=== PATIENT | male | born 1965 | race Caucasian/White ===

== ENCOUNTER 2018-12-18 14:28 | Observation (INO) ==
[2018-12-18] MEDS ORDERED: MORPHINE IV ONE (15:03)
[2018-12-18] MEDS ORDERED: ZOFRAN IV ONE ×2 (15:03→16:47)
[2018-12-18] MEDS ORDERED: ASPIRIN PO ONE (15:28)
[2018-12-18 15:33] LABS: BASO# 0.03 X1000 (0.0-0.2); BASO% 0.3 % (0.0-0.8); EOS# 0.18 X1000 (0.0-0.7); EOS% 1.7 % (0.0-10.0); HEMATOCRIT 48.2 % (42.0-52.0); HEMOGLOBIN 16.3 g/dL (14.0-18.0); IMM GRAN# 0.03 X1000 (0.0-0.04); IMM GRAN% 0.3 % (0.0-0.5); LYMPH# 1.68 X1000 (1.2-3.4); LYMPH% 15.5 % (20.5-51.1); MCHC 33.8 g/dL (33-37); MCV 88.6 FL (81-99); MONO# 0.71 X1000 (0.11-0.59); MONO% 6.5 % (1.7-9.3); MPV 8.9 FL (7.4-10.4); NEUT# 8.21 X1000 (1.4-6.5); NEUT% 75.7 % (42.2-75.2); PLT 305 X1000 (130-400); RBC 5.44 XMIL (4.7-6.1); RDW 12.4 % (11.5-14.5); WBC 10.84 X1000 (4.8-10.8)
[2018-12-18] MEDS ORDERED: NITROGLYCERIN TOP ONE (15:52)
[2018-12-18 16:19] LABS: AGAP 18; ALB/GLOB RATIO 1.6; ALBUMIN 4.6 g/dL (3.5-5.0); ALKALINE PHOSPHATASE 93 U/L (32-122); AMYLASE 40 U/L (20-200); BUN 16 mg/dL (8-22); CALCIUM 9.4 mg/dL (8.8-10.2); CHLORIDE 105 mmol/L (98-107); CK PROFILE 188 U/L (24-204); COSMO 280; CREATININE 0.8 mg/dL (0.7-1.2); ESTIMATED GFR > 60; GLUCOSE 113 mg/dL (70-104); GOT 29 U/L (10-34); GPT 39 U/L (10-44); LIPASE 28 U/L (13-60); POTASSIUM 4.1 mmol/L (3.5-5.1); SODIUM 139 mmol/L (136-145); TCO2 16 mmol/L (25-35); TOTAL BILIRUBIN 1.04 mg/dL (0.20-1.00); TOTAL PROTEIN 7.4 g/dL (6.3-8.3)
--- NOTE | 2018-12-18 16:59 | EKG Report ---
Test Performed on : 12/18/2018 2:30:07 PM Test Reason : ED. No order in [place] Blood Pressure : / mmHG Vent. Rate : 077 BPM Atrial Rate : 077 BPM P-R Int : 146 ms QRS Dur : 086 ms QT Int : 376 ms P-R-T Axes : 031 -14 049 degrees QTc Int : 425 ms Normal sinus rhythm. Normal ECG No previous ECGs available Unconfirmed Result
--- NOTE | 2018-12-18 17:16 | PROVIDER DOCUMENTATION ---
This chart was entered by Gwendolyn Bland Scribe, acting as scribe for Estefania Osorio MD. HPI-Chest Pain - General Chief Complaint: Chest Pain Stated Complaint: CP Time Seen by Provider: 12/18/18 14:55 Allergies/Adverse Reactions: Patient Allergies Allergy/AdvReac Type Severity Reaction Status Date / Time No Known Allergies Allergy Verified 12/18/18 15:15 Home Medications: Home Medication List Medication Instructions Recorded Confirmed Last Taken Type ROSUVAstatin [Crestor] 10 mg PO QHS 12/18/18 12/18/18 1 Day Ago History ~12/17/18 - History of Present Illness-CP Nature of Presenting Problem: Pt is a 53 yom who presents to the ER w/ chest pain. Pt staets the pain started at 9:30am. Pt is nauseous and short of breath. Pt states he feels pressure on his chest. Location: reports: central Quality of Pain: reports: pressure Severity in ED: moderate Onset/Duration: this morning Timing: still present, getting worse Context/Activities at Onset: reports: none Associated Symptoms: reports: denies symptoms, diaphoresis, nausea, shortness of breath. denies: abdominal pain, fatigue, fever/chills Similar Symptoms Previously?: No Recently Seen Here or By Another Healthcare Provider: No Review of Systems - Adult - REVIEW OF SYSTEMS - ADULT Constitutional: reports: no symptoms reported Eyes: reports: no symptoms reported Ears, Nose, Mouth & Throat: reports: no symptoms reported Cardiovascular: reports: see HPI, chest pain. denies: irregular heart rate, palpitations Respiratory: reports: see HPI, shortness of breath. denies: cough, wheezing Gastrointestinal: reports: see HPI, nausea. denies: abdominal pain, vomiting Genitourinary: reports: no symptoms reported Musculoskeletal: reports: no symptoms reported Integumentary: reports: no symptoms reported Neurological: reports: no symptoms reported Psychiatric: reports: no symptoms reported Endocrine: reports: no symptoms reported Hematologic/Lymphatic: reports: no symptoms reported Allergic/Immunologic: reports: no symptoms reported All Other Systems: Reviewed and Negative Past History - Adult - PAST MEDICAL HISTORY-ADULT Review of Records: reports: Old Records Reviewed, Social history reviewed & non- contributory. Major Childhood Illnesses: reports: denies history Cardiovascular: reports: denies history Respiratory: reports: denies history Gastrointestinal: reports: denies history Obstetrical/Gynecological: reports: denies history Genitourinary: reports: denies history Musculoskeletal: reports: denies history Neurological: reports: denies history Endocrine/Immune: reports: denies history Other Conditions: reports: denies history - IMMUNIZATION STATUS Childhood Immunizations: See Nurse Assessment Flu Vaccine: See Nurse Assessment - FAMILY HISTORY Family History: reviewed, not pertinent - SOCIAL HISTORY Smoking: denies Substance Use: denies Physical Exam-General - CONSTITUTIONAL General Appearance: alert, mild distress, anxious - HEAD, EARS, NOSE, MOUTH & THROAT HENMT: normocephalic/atraumatic, moist mucous membranes. negative: angioedema - RESPIRATORY Respiratory: lungs clear, normal breath sounds. negative: crackles, wheezing - CARDIOVASCULAR Cardiovascular: normal peripheral pulses, regular rate, rhythm. negative: bradycardia, tachycardia - GASTROINTESTINAL (ABDOMEN) Abdominal Exam: normal bowel sounds, non tender, soft. negative: guarding, rebound - SKIN Integumentary: normal color, normal turgor, diaphoresis. negative: pallor - NEUROLOGIC Neurologic: grossly normal. negative: aphasia, facial droop - PSYCHIATRIC Psych/Mental Status: anxious. negative: normal mood/affect - HEART Score HEART Score: History: Moderately Suspicious HEART Score: ECG: Normal HEART Score: Age: 45-65 Years HEART Score: Risk Factors for Atherosclerotic Disease: 1 or 2 Risk Factors HEART Score: Troponin: < or = Normal Limit Total HEART Score:: 3 Progress - PLAN OF CARE/RESULTS Progress/Plan/Lab Results: Vital Signs - 8 hr 12/18/18 14:30 12/18/18 15:21 12/18/18 15:58 Temperature 97.9 F Pulse Rate 85 67 64 Respiratory Rate 18 18 16 Blood Pressure 148/97 113/95 142/96 O2 Sat by Pulse Oximetry 97 95 94 L 12/18/18 18:04 Temperature Pulse Rate 96 H Respiratory Rate 18 Blood Pressure 131/80 O2 Sat by Pulse Oximetry 99 Laboratory Results - last 24 hr 12/18/18 12/18/18 12/18/18 15:20 15:20 15:20 WBC 10.84 H RBC 5.44 Hgb 16.3 Hct 48.2 MCV 88.6 MCH 30.0 MCHC 33.8 RDW Std Deviation 12.4 Plt Count 305 MPV 8.9 Immature Gran % (Auto) 0.3 Neut % (Auto) 75.7 H Lymph % (Auto) 15.5 L [place] % (Auto) 6.5 Eos % (Auto) 1.7 Baso % (Auto) 0.3 Immature Gran # (Auto) 0.03 Neut # (Auto) 8.21 H Lymph # (Auto) 1.68 [place] # (Auto) 0.71 H Eos # (Auto) 0.18 Baso # (Auto) 0.03 Sodium 139 Potassium 4.1 Chloride 105 Carbon Dioxide 16 L Anion Gap 18 BUN 16 Creatinine 0.8 Estimated GFR/1.73 m2 > 60 BUN/Creatinine Ratio 20 Glucose 113 H Calculated Osmolality 280 Calcium 9.4 Total Bilirubin 1.04 H AST 29 ALT 39 Alkaline Phosphatase 93 Creatine Kinase 188 Troponin T < 0.010 Total Protein 7.4 Albumin 4.6 Globulin 2.8 Albumin/Globulin Ratio 1.6 Amylase 40 Lipase 28 12/18/18 12/18/18 16:37 16:37 WBC RBC Hgb Hct MCV MCH MCHC RDW Std Deviation Plt Count MPV Immature Gran % (Auto) Neut % (Auto) Lymph % (Auto) [place] % (Auto) Eos % (Auto) Baso % (Auto) Immature Gran # (Auto) Neut # (Auto) Lymph # (Auto) [place] # (Auto) Eos # (Auto) Baso # (Auto) Sodium Potassium Chloride Carbon Dioxide Anion Gap BUN Creatinine Estimated GFR/1.73 m2 BUN/Creatinine Ratio Glucose Calculated Osmolality Calcium Total Bilirubin AST ALT Alkaline Phosphatase Creatine Kinase 161 Troponin T < 0.010 Total Protein Albumin Globulin Albumin/Globulin Ratio Amylase Lipase Orders Category Date Time Status Saline Loc DIRECTED Care 12/18/18 15:02 Active NPO Diet 12/18/18 15:02 Active CHEST-PORTABLE [RAD] Routine Exams 12/19/18 06:00 Ordered AMYLASE [CHEM] Stat Lab 12/18/18 15:20 Completed CBC WITH ELECTRONIC DIFF [HEME] Stat Lab 12/18/18 15:20 Completed CK PROFILE [SP CHEM] Stat Lab 12/18/18 15:20 Completed CK TOTAL [CHEM] Stat Lab 12/18/18 16:37 Completed COMPREHENSIVE METABOLIC PANEL [CHEM] Stat Lab 12/18/18 15:20 Completed LIPASE [CHEM] Stat Lab 12/18/18 15:20 Completed TROPONIN T Stat Lab 12/18/18 15:20 Completed TROPONIN T Stat Lab 12/18/18 16:37 Completed URINALYSIS W/POSS RFLX CULT [URINALYSIS] Stat Lab 12/18/18 15:02 Uncollected Aspirin Med 12/18/18 15:28 Discontinued 325 mg PO NOW ONE Lido/[place] Alk/Al&mg Hydrox [G.i. Cocktail] Med 12/18/18 17:57 Discontinued 30 ml PO NOW ONE L[place] Alk/Al&mg Hydrox [G.i. Cocktail] Med 12/18/18 17:58 Discontinued 30 ml PO NOW ONE Morphine Med 12/18/18 15:03 Discontinued 4 mg IV NOW ONE Nitroglycerin Med 12/18/18 15:52 Discontinued 0.5 inch TOP NOW ONE Ondansetron [Zofran] Med 12/18/18 15:03 Discontinued 4 mg IV NOW ONE Ondansetron [Zofran] Med 12/18/18 16:47 Discontinued 4 mg IV NOW ONE Promethazine [Phenergan] Med 12/18/18 18:07 Discontinued 12.5 mg IV NOW ONE Sodium Chloride 0.9% Med 12/18/18 18:07 Discontinued 10 ml INJ NOW ONE EKG [EKG] Stat Ther 12/18/18 14:30 Draft EKG [EKG] Stat Ther 12/18/18 16:57 Ordered Transfer/Admit Order [TRANSFER] Routine Transfer 12/18/18 18:07 Ordered Result Diagrams: 12/18/18 15:20 12/18/18 15:20 - REASSESSMENT Reassessment #1 Status: improving (i discussed with patient about test results and options to be admitted for inpatient stress test, patient declined admision, he wanted to go home and have tests as out patient.) - EKG 1 Time of EKG reading by physician:: 14:30 EKG Read and Signed by:: Estefania Osorio EKG Interpretation (*Must complete 3 of following elements*): Normal Rate: 77 Rhythm: normal sinus rhythm [place]: normal QRS: normal MA Interval: normal ST Wave: normal Comments: normal ecg Departure - Departure Date of Disposition Decision: 12/18/18 Time of Disposition Decision: 17:16 DIAGNOSIS: Chest pain Disposition: ADMITTED INPATIENT 09 Certified Medical Emergency: Emergent Condition: Good Referrals and Follow-Ups: None,PCP [Primary Care Provider] - - Critical Care Note This patient required my direct & personal management of CC.: No Attestation - Physician/ GIGI Attestation Patient care was provided by Advanced Practice Provider:: No The physician spent face to face time with patient:: Yes Advanced Practice Provider documentation review:: Supervising physician onsite and consulted in the evaluation and care of this patient. The physician did have a face to face encounter with the patient. This chart was documented by the indicated scribe, (Gwendolyn Bland Scribe) and accurately reflects the services I performed and decisions made by me, Estefania Osorio MD, as attested by the provider's signature.
[2018-12-18] MEDS ORDERED: G.I. COCKTAIL PO ONE ×2 (17:57→17:58)
[2018-12-18] MEDS ORDERED: SODIUM CHLORIDE 0.9% INJ ONE (18:07)
[2018-12-18] MEDS ORDERED: PHENERGAN IV ONE (18:07)
--- NOTE | 2018-12-18 20:38 | EKG Report ---
Test Performed on : 12/18/2018 5:32:18 PM Test Reason : repeat 2 hours after 1st ekg Blood Pressure : / mmHG Vent. Rate : 076 BPM Atrial Rate : 076 BPM P-R Int : 150 ms QRS Dur : 084 ms QT Int : 380 ms P-R-T Axes : 030 009 036 degrees QTc Int : 427 ms Normal sinus rhythm. Normal ECG When compared with ECG of 18-DEC-2018 14:30, (Unconfirmed) No significant change was found Confirmed by Jacob Olson MD ([id number]) on 12/19/2018 7:00:47 AM
[2018-12-18] MEDS ORDERED: PRAVACHOL PO ONE (21:06)
[2018-12-18] MEDS ORDERED: NITROGLYCERIN SL PRN (21:06)
[2018-12-18] MEDS ORDERED: TYLENOL PO PRN (21:06)
[2018-12-18] MEDS ORDERED: LOVENOX SUBQ SCH (21:06)
[2018-12-18] MEDS: ZOFRAN IV PRN (21:18)
--- NOTE | 2018-12-18 22:48 | HISTORY AND PHYSICAL ---
PRIMARY CARE PROVIDER: Dr. Choi. CHIEF COMPLAINT: Chest pressure. HISTORY OF PRESENT ILLNESS: Mr. Grier is a 53-year-old gentleman who carries a past medical history of hyperlipidemia, who reported around 9 or 10 a.m. he had "chest pressure that lasted for a few minutes, then went away." He went to lunch. When they went back to the office, he states the chest pressure came back. He broke out in a cold sweat. His legs went weak. He felt disoriented. He became very nauseated although there was no vomitus. He was short of breath and some palpitations. There was no radiating pain. He reports since he came to the hospital, the pressure has eased, but has not quite gone away. He was going to be discharged and then the pressure came back again and he became nauseated again. He was given a total of 8 mg of Zofran and then 12.5 mg of IV Phenergan now. He has had 2 sets of negative cardiac enzymes. We will admit him overnight for chest pain rule out. He does have a strong family history of heart disease. We will set him up for an echocardiogram and stress test in the a.m. We will consult Cardiology tomorrow if warranted. PAST MEDICAL HISTORY: Hyperlipidemia. 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 FAMILY HISTORY: Father had an SD at the age of 62 where he received stents, 9 months later a CABG. Mother at the age of 62 with stents and a sister with an SD with stents and a AAA repair. SOCIAL HISTORY: He is a real estate broker associate. He is . He has a son and daughter at the bedside as well as his . No tobacco or illicit drug use. Occasional alcohol with a [employer] Lemonade. REVIEW OF SYSTEMS: Twelve-point review of systems completely negative except for those mentioned in HPI. ALLERGIES: No known drug allergies. HOME MEDICATIONS: Crestor 10 mg p.o. at bedtime. PHYSICAL EXAMINATION: VITAL SIGNS: Temperature is 97.9 degrees, heart rate 96, respirations 18, blood pressure is 131/80, O2 is 99% on room air. GENERAL: Mr. Grier is a pleasant 53-year-old male who is somewhat nauseated lying on the stretcher but in no acute distress. HEENT: Atraumatic, normocephalic. PERRL. NECK: Supple. Trachea midline. CARDIOVASCULAR: S1, S2 appreciated. No murmurs, gallops, rubs noted. RESPIRATORY: Lung sounds clear bilaterally. GASTROINTESTINAL: Soft, nontender, nondistended. Positive bowel sounds 4 quadrants. EXTREMITIES: Moves all extremities well. No lower extremity edema. NEUROLOGIC: No new focal deficits noted. DIAGNOSTIC DATA: EKG shows normal sinus rhythm at 77 beats per minute. Chest x-ray is currently pending. LABORATORY DATA: White count 10, hemoglobin and hematocrit 16 and 48, platelet count is 305,000. Sodium 139, potassium 4.1, BUN 16, creatinine 0.8, blood glucose is 113, T bilirubin 1.04. Two sets of troponins have been negative. ASSESSMENT AND PLAN: 1. Chest pain rule out. The patient does have a history of hyperlipidemia and a strong family history of SD with stents and CABG. We will place him in and rule him out. Two sets of cardiac enzymes are negative. We will trend 1 more set, set him up for an echo and stress test in the a.m. We will consult Cardiology if warranted. 2. Hyperlipidemia. We will up his statin. Check a lipid profile in the a.m. 3. Further recommendation to follow physician evaluation, laboratory and diagnostic data. Dictated by JACK Iqbal for Paresh Fletcher MD cc: MD Dr. Jimbo Pérez
--- NOTE | 2018-12-18 23:09 | HISTORY AND PHYSICAL ---
ADDENDUM: HISTORY OF PRESENT ILLNESS: Mr. Grier presented to the emergency department today because of chest pressure. According to him, he went to work. He did have about 2 pressure sensation in the retrosternal space early on at work, but then after lunch while he was sitting at his desk, he felt a heavier pressure on his chest which was associated with some nausea, and he broke out in sweat, so he asked one of his coworkers to bring him in. Upon presenting to the emergency department, he was found to be slightly hypertensive with a blood pressure 148/97. Rest of the vitals are unremarkable. His family history is significant for his father having an ME at the age of 63, mother also having an ME at the age of early 50s, and a sister having an ME at the age of 50s. Upon presenting to the emergency department, he was evaluated. A physical exam for the most part is unremarkable. LABS AND DIAGNOSTIC DATA: An initial EKG shows normal sinus rhythm with normal axis, no ST- segment or T-wave abnormalities. His initial troponin is also unremarkable, 2 times. His CBC and chemistry are within normal range except for mild anion gap metabolic acidosis. He has also had slight leukocytosis. ASSESSMENT/PLAN: 1. Atypical chest pain. Mr. Grier's only risk factor is that he is has dyslipidemia, and he is on Crestor. He, however, has a very significant family history, so we think he will need to be ruled out for any acute coronary syndrome. We are going to trend up his troponins. We are going to repeat his EKG in the morning. We will also get an echocardiogram and a stress test in the morning and get Cardiology to see him. 2. Dyslipidemia. Will continue with his with his Crestor. 3. Obesity with a BMI of 35.2. 4. Gap metabolic acidosis with evidence of hemoconcentration. We are going to gently hydrate him overnight. Please refer to the details of the H and P which has been dictated by the nurse practitioner in the chart. cc: Paresh Fletcher MD
[2018-12-18 23:23] LABS: URINE SOURCE CLEAN CATCH
[2018-12-18 23:25] LABS: BILIRUBIN URINE NEGATIVE (NEGATIVE); BLOOD URINE NEGATIVE (NEGATIVE); COLOR YELLOW; GLUCOSE URINE NEGATIVE (NEGATIVE); KETONE URINE 10 mg/dL (NEGATIVE); LEUKOCYTES URINE NEGATIVE (NEGATIVE); NITRITE URINE NEGATIVE (NEGATIVE); PH URINE 5.5; PROTEIN URINE TRACE mg/dL (NEGATIVE); SP GRAVITY URINE 1.034; TURBIDITY URINE CLEAR (CLEAR); UR EPITHELIAL CELLS <10 /HPF (<10); URINE BACTERIA NEGATIVE /HPF; URINE RBC <10 /HPF (<10); URINE WBC <10 /HPF (<10); UROBILINOGEN URINE NORMAL (NORMAL)
[2018-12-18] MEDS: NS 1,000 ML IV SCH (23:59)
[2018-12-19] MEDS: ZOFRAN IV PRN ×2 (04:05→11:52)
[2018-12-19] MEDS ORDERED: PHENERGAN IV PRN (04:36)
[2018-12-19] MEDS ORDERED: SODIUM CHLORIDE 0.9% INJ ONE (04:36)
--- NOTE | 2018-12-19 05:56 | Diag Imaging Result Doc PS360 ---
EXAM: CHEST-PORTABLE HISTORY: CP TECHNIQUE: Chest single view COMPARISON: None. FINDINGS: The lungs are well expanded. The heart is not enlarged. The vessels are not distended. There are mild increased markings in left costophrenic angle. No effusion identified. IMPRESSION: Questionable small left basilar infiltrate. Electronically signed by Reji Hanson 12/19/2018 5:54 AM
--- NOTE | 2018-12-19 06:18 | Diag Imaging Result Doc PS360 ---
EXAM: CHEST-PORTABLE HISTORY: CP TECHNIQUE: Chest single view COMPARISON: 12/18/2018 FINDINGS: The lungs are well expanded. The heart is not enlarged. The vessels are not distended. There are no infiltrates. No effusion identified. IMPRESSION: Negative exam. Electronically signed by Reji Hanson 12/19/2018 6:15 AM
[2018-12-19] MEDS ORDERED: PRILOSEC PO SCH (07:00)
--- NOTE | 2018-12-19 07:07 | EKG Report ---
Test Performed on : 12/19/2018 06:23:53 AM Test Reason : CP Blood Pressure : / mmHG Vent. Rate : 091 BPM Atrial Rate : 091 BPM P-R Int : 152 ms QRS Dur : 084 ms QT Int : 342 ms P-R-T Axes : 034 080 016 degrees QTc Int : 420 ms Normal sinus rhythm. Normal ECG When compared with ECG of 18-DEC-2018 17:32, (Unconfirmed) Questionable change in QRS axis Confirmed by Jacob Olson MD ([id number]) on 12/21/2018 9:00:15 AM
[2018-12-19 07:22] LABS: BASO# 0.01 X1000 (0.0-0.2); BASO% 0.2 % (0.0-0.8); EOS# 0.03 X1000 (0.0-0.7); EOS% 0.5 % (0.0-10.0); HEMATOCRIT 43.4 % (42.0-52.0); HEMOGLOBIN 14.4 g/dL (14.0-18.0); LYMPH# 0.56 X1000 (1.2-3.4); LYMPH% 9.6 % (20.5-51.1); MCH 30.3 PG (27-31); MCHC 33.2 g/dL (33-37); MCV 91.2 FL (81-99); MONO# 0.29 X1000 (0.11-0.59); MPV 9.1 FL (7.4-10.4); NEUT# 4.92 X1000 (1.4-6.5); NEUT% 84.7 % (42.2-75.2); PLT 247 X1000 (130-400); RBC 4.76 XMIL (4.7-6.1); RDW 12.6 % (11.5-14.5); WBC 5.81 X1000 (4.8-10.8)
[2018-12-19 07:36] LABS: AGAP 12; ALB/GLOB RATIO 1.4; ALBUMIN 3.7 g/dL (3.5-5.0); ALKALINE PHOSPHATASE 71 U/L (32-122); BUN 20 mg/dL (8-22); CHLORIDE 105 mmol/L (98-107); CHOLESTEROL 102 mg/dL (0-200); COSMO 279; CREATININE 0.8 mg/dL (0.7-1.2); ESTIMATED GFR > 60; GLUCOSE 117 mg/dL (70-104); GOT 17 U/L (10-34); GPT 28 U/L (10-44); HDL 34 mg/dL (35-55); LDL 49 mg/dL; MAGNESIUM 1.7 mg/dL (1.5-2.7); POTASSIUM 3.9 mmol/L (3.5-5.1); SODIUM 138 mmol/L (136-145); TCO2 21 mmol/L (25-35); TOTAL BILIRUBIN 0.84 mg/dL (0.20-1.00); TOTAL PROTEIN 6.4 g/dL (6.3-8.3); TRIGLYCERIDES 93 mg/dL (39-160); VLDL 19 mg/dL
[2018-12-19] MEDS ORDERED: ASPIRIN PO SCH (09:00)
[2018-12-19 12:21] VITALS: BP 116/65
--- NOTE | 2018-12-19 15:38 | Diag Imaging Result Document ---
PROCEDURE NAME: MYOCARDIAL PERF SCAN, STR/REST - 12/19/2018 PROCEDURE: Exercise Cardiolite stress test. SUMMARY: The patient exercised on the Jose Alejandro protocol for 6 minutes to a peak heart rate of 150 beats per minute, 89% of predicted. Maximal heart rate achieved 68% exercise capacity. There was no chest pain. Stress electrocardiogram was negative for ischemia. Normal blood pressure response to exercise. Cardiolite was injected. 14.4 mCi of Cardiolite was injected for the rest phase; 44 mCi of Cardiolite was injected for the stress phase. Gated SPECT images were obtained in standard views. Images revealed chest wall and diaphragmatic attenuation. Normal left ventricular cavity size. There is low-grade fixed defect in the base of the inferior wall suggestive of attenuation defect. Normal left ventricular function. Ejection fraction of 69%. There is no evidence of ischemia. CONCLUSIONS: 1. No chest pain. 2. Negative exercise stress electrocardiogram. 3. Myocardial perfusion images revealed no evidence of ischemia. 4. There is a low-grade fixed defect in the base of the inferior wall suggestive of attenuation defect. 5. Left ventricular ejection fraction 69%. cc: Dandre King MD
[2018-12-19] MEDS: NS 1,000 ML IV SCH (16:40)
--- NOTE | 2018-12-19 18:13 | ECHO REPORT ---
ORDER DATE: 12/19/2018 INTERPRETING PHYSICIAN: Dr. Cliff Cooper. REQUESTING PHYSICIAN: CLINICAL INDICATIONS: A 53-year-old male with chest pain. The patient weighs 245 pounds. M-MODE MEASUREMENTS: Right ventricle: cm. Left ventricle end diastole: 4.5 cm. Left ventricle end systole: 2.9 cm. Posterior wall: 1.1 cm. Interventricular septum: 1.1 cm. Left atrium: 3.7 cm. Aortic root: 3.5 cm. SUMMARY OF 2-DIMENSIONAL IMAGIN. The left ventricle function is normal. Ejection fraction estimated at 67%. Left ventricle is mildly enlarged. Right ventricle is normal. 2. Atria appear to be normal. 3. Aortic valve has 3 cusps. Color flow mapping unremarkable. 4. Pulmonic valve appears normal. Color flow mapping unremarkable. 5. The tricuspid valve shows trace degree of regurgitation. 6. Pulmonary pressure estimated at 28 mmHg. 7. Mitral valve is normal. Color flow mapping unremarkable. 8. Pulse wave Doppler of mitral inflow shows mild inversion of the E/A ratio. 9. Doppler pattern of Pulmonary Venous flow is normal. 10.Tissue Doppler of mitral annulus averages 9 cm per second, indicating normal diastolic function. 11.No mass, no thrombus. SUMMARY: In summary, this study shows: 1. Normal left ventricular systolic function. 2. Normal diastolic function. 3. No evidence of any significant valvular abnormalities. 4. No evidence of mass or thrombus. No pericardial effusion. Clinical correlation is recommended. cc: Cliff Cooper MD MTDD
--- NOTE | 2018-12-20 13:40 | DISCHARGE SUMMARY ---
ADMISSION DATE: 12/18/2018 DISCHARGE DATE: 12/19/2018 DISPOSITION: Home. CONSULTATION DURING THIS ADMISSION: None. IMAGING STUDIES OF SIGNIFICANCE: A chest x-ray did show questionable left basilar infiltrate. A repeat showed negative, lungs well-expanded. A myocardial perfusion scan showed an ejection fraction of 69%. The myocardial perfusion images revealed no evidence of ischemia. There was negative exercise stress electrocardiogram. Troponins were trended 4 times and negative. ADMISSION DIAGNOSES: 1. Chest pain, rule out. 2. Dyslipidemia. DIAGNOSES AT THE TIME OF DISCHARGE: 1. Atypical chest pain with negative cardiac workup. The patient has been advised to follow up with primary care and also get Gastroenterology evaluation if symptoms persist. 2. Dyslipidemia. 3. Obesity with body mass index of 35.5. 4. Clinical volume depletion, with mild anion gap metabolic acidosis, resolved during the hospital course. DISCHARGE MEDICATIONS: Crestor 10 mg p.o. at bedtime. Omeprazole 20 mg p.o. daily. PRESENTING COMPLAINT: Chest pressure. HISTORY OF PRESENT COMPLAINT: Mr. Grier is a 53-year-old gentleman, with a history of dyslipidemia and remarkable family history of coronary artery disease, who presented to the emergency department because of chest pressure. Upon presenting, he was found to be slightly hypertensive, with a blood pressure of 148/97, which eventually got settled during the hospital course. Because of the patient's family history and his individual heart risk score, he was admitted to rule out coronary artery disease. HOSPITAL COURSE: Mr. Grier was admitted overnight and was hydrated, was started on aspirin, and repeat EKGs were done, which did not show any changes. Troponins were trended 3 times, they all came back negative, and a stress test was done which did not show any ischemic changes. Mr. Grier also did refer to have felt remarkably better during the hospital course. This morning, he denied any more chest pain or chest pressure. We think he is fairly stable to be discharged. All of his workup has been fairly unremarkable. We think his pain or chest pressure is noncardiac. He was started on also PPI and he feels better, which he has been advised to follow up with GI if the symptoms persist. Mr. Grier is also advised to follow up with his primary care and has been advised on weight management. All the discharge instructions have been discussed with him. He voiced understanding. At the time of the encounter, the and the daughter were both at the bedside with him. TIME SPENT: Time spent for discharge is 35 minutes. cc: Paresh Fletcher MD
== END 2018-12-19 17:00 | disposition home or self-care (01) ==
LOC: ED 14:28 → INTOOBSV 22:05 → 3N 22:05
PROVIDERS: ATTEND Internal Medicine